=== PATIENT | male | born 1990 | race African-American/Black ===

== ENCOUNTER 2016-12-19 20:06 | Emergency (ER) | payer OTHER, SELFPAY ==
--- NOTE | 2016-12-19 20:46 | RAD ---
RIGHT RING FINGER: History: Trauma. FINDINGS: There is dislocation of the ring finger at the PIP joint. I do not see a definite associated fractur e. IMPRESSION: PIP joint dislocation. POS: [facility]
== END 2016-12-19 21:33 | disposition home or self-care (01) ==
LOC: ERS 20:06
DX: S63.284A Dislocation of proximal interphalangeal joint of right ring finger, initial encounter (principal); W22.8XXA Striking against or struck by other objects, initial encounter; Y93.B2 Activity, push-ups, pull-ups, sit-ups
CPT/HCPCS: 26770